=== PATIENT | female | born 1945 | race Caucasian/White ===

== ENCOUNTER → 2018-01-09 | Outpatient (CLI) | payer MEDICARE, OTHER | LOC: COL.RAD 01-03 13:34 | DX: K21.0 Gastro-esophageal reflux disease with esophagitis (principal); K22.70 Barrett's esophagus without dysplasia | CPT/HCPCS: A9541 ==

== ENCOUNTER 2018-11-19 16:26 | Emergency (ER) | payer MEDICARE ==
[~2018-11-19] VITALS: Ht 152.4 cm; Wt 90.9 kg
[2018-11-19 16:38] VITALS: TEMP 98.5
[2018-11-19 17:30] LABS: BILIRUBIN,TOTAL 0.5 mg/dL (0.0-1.0); CALCIUM 9.3 mg/dL (8.4-10.2); CREATININE, serum 1.47 (0.52-1.25); MAGNESIUM 1.9 mg/dL (1.6-2.3); TOTAL PROTEIN 6.6 gm/dL (6.4-8.2)
[2018-11-19 17:47] LABS: TROPONIN-I < 0.012 ng/mL (0.000-0.035)
[2018-11-19 19:58] VITALS: BP 104/54; PULSE 70
[2018-11-19 21:23] LABS: HEMATOCRIT 31.3 % (37.0-47.0); MEAN CELL VOLUME 84 fl (80.0-100.0); MEAN CORPUSCULAR HEMOGLOBIN 27 pg (27.0-31.0); RED BLOOD COUNT 3.71 M/mm3 (4.10-5.30)
[2018-11-19 21:24] LABS: MEAN CORPUSCULAR HGB CONC 32 g/dl (33.0-37.0); MEAN PLATELET VOLUME 10.3 fl (7.4-10.4); PLATELET COUNT 338 K/mm3 (130-400); REDCELL DISTRIBUTION WIDTH-CV 14.8 % (11.5-14.5)
[2018-11-19 21:25] LABS: BASOPHIL 2 % (0-2); EOSINOPHIL 3 % (0-4); NEUTROPHILS 52 % (42.0-75.2); PLATELET ESTIMATE NORMAL (NORMAL); POLYCHROMASIA 1+
[2018-11-19 21:26] LABS: ANISOCYTOSIS 1+; POIKILOCYTOSIS 1+
[2018-11-20] MEDS ORDERED: CYMBALTA 60MG60 MG PO (13:21)
[2018-11-20] MEDS ORDERED: CARDIZEM LA120 MG PO (13:24)
[2018-11-20] MEDS ORDERED: WELLBUTRIN XL150 MG PO (13:25)
[2018-11-20] MEDS ORDERED: NEURONTIN300 MG/CAP PO (13:28)
[2018-11-20] MEDS ORDERED: LIPITOR20 MG PO (13:29)
[2018-11-20] MEDS ORDERED: HCTZ 25MG TAB25 MG PO (13:29)
[2018-11-20] MEDS ORDERED: NORCO 325 MG-7.1 TAB PO (13:30)
[2018-11-20] MEDS ORDERED: ZESTRIL40 MG PO (13:30)
[2018-11-20] MEDS ORDERED: ASPIRIN 81M81 MG/TA2 PO (13:31)
[2018-11-20] MEDS ORDERED: PROAIR HFA0.09 MG/AC IH (13:31)
[2018-11-20] MEDS ORDERED: ELIQUIS 5MG PO (13:33)
[2018-11-20] MEDS ORDERED: SYNTHROID0.075 MG/T PO (13:34)
[2018-11-20] MEDS ORDERED: ATIVAN2 MG PO (13:34)
[2018-11-20] MEDS ORDERED: SYNTHROID0.05 MG/TA PO (13:38)
[2018-11-20] MEDS ORDERED: TOPROL XL 25MG25 MG PO (14:10)
[2018-11-20 14:47] LABS: LYMPHOCYTE 15 % (20.0-51.0)
== END 2018-11-19 19:58 | disposition home or self-care (01) ==
LOC: COL.ER 16:26
PROVIDERS: Emergency Medicine
DX: I48.92 Unspecified atrial flutter (principal); I48.91 Unspecified atrial fibrillation; I10 Essential (primary) hypertension; F41.9 Anxiety disorder, unspecified; F32.9 Major depressive disorder, single episode, unspecified; M79.7 Fibromyalgia; E03.9 Hypothyroidism, unspecified; Z90.710 Acquired absence of both cervix and uterus; Z87.891 Personal history of nicotine dependence
CPT/HCPCS: J7030

== ENCOUNTER 2018-11-20 12:15 | Day surgery (SDC) | payer MEDICARE ==
[2018-11-20] VITALS (7 sets, daily range): BP systolic 90–120; BP diastolic 40–78; PULSE 76–146; TEMP 98.7
[~2018-11-20] VITALS: Ht 152.5 cm; Wt 95.7 kg
[2018-11-20 13:04] LABS: INR 1.5 (0.8-3.0); POTASSIUM 4.4 mmol/L (3.4-5.0); PROTHROMBIN TIME 17.4 SECONDS (9.7-12.8)
[2018-11-20] MEDS ORDERED: CYMBALTA 60MG60 MG PO (13:21)
[2018-11-20] MEDS ORDERED: CARDIZEM LA120 MG PO (13:24)
[2018-11-20] MEDS ORDERED: WELLBUTRIN XL150 MG PO (13:25)
[2018-11-20] MEDS ORDERED: NEURONTIN300 MG/CAP PO (13:28)
[2018-11-20] MEDS ORDERED: LIPITOR20 MG PO (13:29)
[2018-11-20] MEDS ORDERED: HCTZ 25MG TAB25 MG PO (13:29)
[2018-11-20] MEDS ORDERED: NORCO 325 MG-7.1 TAB PO (13:30)
[2018-11-20] MEDS ORDERED: ZESTRIL40 MG PO (13:30)
[2018-11-20] MEDS ORDERED: PROAIR HFA0.09 MG/AC IH (13:31)
[2018-11-20] MEDS ORDERED: ASPIRIN 81M81 MG/TA2 PO (13:31)
[2018-11-20] MEDS ORDERED: ELIQUIS 5MG PO (13:33)
[2018-11-20] MEDS ORDERED: SYNTHROID0.075 MG/T PO (13:34)
[2018-11-20] MEDS ORDERED: ATIVAN2 MG PO (13:34)
[2018-11-20] MEDS ORDERED: SYNTHROID0.05 MG/TA PO (13:38)
[2018-11-20 13:39] LABS: THYROID STIMULATING HORMONE 0.715 uIU/mL (0.465-4.680)
[2018-11-20] MEDS ORDERED: TOPROL XL 25MG25 MG PO (14:10)
--- NOTE | 2018-11-20 16:00 | NUR ---
Discharge instructions given to pt.pt verbalizes understanding.INT removed,catheter tip intact.Pt escorted out via wheelchair by this nurse.
== END 2018-11-20 16:14 | disposition home or self-care (01) ==
LOC: COL.CAR 12:15
PROVIDERS: Internal Medicine Cardiovascular Disease
DX: I48.91 Unspecified atrial fibrillation (principal); I10 Essential (primary) hypertension; E78.5 Hyperlipidemia, unspecified; I73.9 Peripheral vascular disease, unspecified; J44.9 Chronic obstructive pulmonary disease, unspecified; E03.9 Hypothyroidism, unspecified; M19.90 Unspecified osteoarthritis, unspecified site; G89.29 Other chronic pain; M54.2 Cervicalgia; Z79.82 Long term (current) use of aspirin; Z79.01 Long term (current) use of anticoagulants; Z82.3 Family history of stroke; Z87.891 Personal history of nicotine dependence; Z88.0 Allergy status to penicillin
CPT/HCPCS: J2704; J7030

== ENCOUNTER 2023-09-16 14:22 | Emergency (ER) | payer MEDICARE ==
[~2023-09-16] VITALS: Ht 149.9 cm; Wt 57.7 kg
[~2023-09-16 14:22] MED LIST: AMBIEN 5MG TABLE5 MG PO; ASPIRIN 81M81 MG/TA2 PO; ATIVAN2 MG PO; CARDIZEM LA120 MG PO; CYMBALTA 60MG60 MG PO; DEXILANT60 MG PO; ELIQUIS 5MG PO; HCTZ 25MG TAB25 MG PO; LIPITOR20 MG PO; NEURONTIN300 MG/CAP PO; NORCO 325 MG-7.1 TAB PO; PROAIR HFA0.09 MG/AC IH; PROZAC 20MG20 MG PO; SUBOXONE 8 MG-21 FIL SL; SYNTHROID0.05 MG/TA PO; SYNTHROID0.075 MG/T PO; TOPROL XL 25MG25 MG PO; WELLBUTRIN XL150 MG PO; ZESTRIL40 MG PO
[2023-09-16 15:41] LABS: COLLECTION METHOD CLEAN CATCH
[2023-09-16 15:47] LABS: BASO % 0.5 % (0.0-2.0); EOS # 0.1 K/mm3 (0.0-0.7); EOS % 1.3 % (0.0-4.0); GRAN % 66.4 % (42.2-75.2); HEMATOCRIT 38.9 % (37.0-47.0); LYMPH # 1.6 K/mm3 (1.2-3.4); LYMPH % 26.6 % (20.0-51.0); MEAN CELL VOLUME 85 fl (80.0-100.0); MEAN CORPUSCULAR HEMOGLOBIN 28 pg (27-31); MEAN CORPUSCULAR HGB CONC 33 g/dl (33.0-37.0); MEAN PLATELET VOLUME 11.3 fl (7.4-10.4); MONO # 0.3 K/mm3 (0.1-0.6); MONO % 4.9 % (1.7-9.3); PLATELET COUNT 276 K/mm3 (130-400); RED BLOOD COUNT 4.57 M/mm3 (4.10-5.30); REDCELL DISTRIBUTION WIDTH-CV 14.3 % (11.5-14.5)
[2023-09-16] MEDS ORDERED: NORVASC 5MG5 MG/TAB PO (15:53)
[2023-09-16] MEDS ORDERED: PRIL40 PO (15:54)
[2023-09-16] MEDS ORDERED: ASPIRIN 81M81 MG/TA2 PO (15:55)
[2023-09-16 15:56] LABS: PH 5.5 (5.0-8.5); URINE APPEARANCE CLOUDY (CLEAR/HAZY); URINE BLOOD NEGATIVE (NEGATIVE); URINE COLOR Dark Yellow (YELLOW); URINE GLUCOSE NEGATIVE (NEGATIVE); URINE KETONE TRACE (NEGATIVE); URINE NITRATE NEGATIVE (NEGATIVE); URINE PROTEIN(semi-quant) 1+ (NEGATIVE)
[2023-09-16] MEDS ORDERED: diphenhydrAMINE 25 MG CAP PO ONE (16:00)
[2023-09-16 16:04] LABS: ALANINE AMINOTRANSFERASE 16 U/L (0-55); ALBUMIN 3.9 g/dL (3.4-4.8); ALKALINE PHOSPHATASE 67 U/L (40-150); ANION GAP 12 mmol/L (7-16); AST,SGOT 18 U/L (5-34); BILIRUBIN,TOTAL 0.7 mg/dL (0.2-1.2); BLOOD UREA NITROGEN 20 mg/dL (10-20); CALCIUM 9.9 mg/dL (8.4-10.2); CHLORIDE 107 mEq/L (98-107); CREATININE, serum 0.91 mg/dL (0.57-1.11); GLUCOSE 115 mg/dL (70-99); POTASSIUM 3.5 mEq/L (3.5-4.5); SODIUM 143 mEq/L (136-145); TOTAL PROTEIN 6.7 g/dl (6.2-8.1)
[2023-09-16 16:08] LABS: ALCOHOL(ethanol),MEDICAL < 10 mg/dL (0-10); SALICYLATE < 5.0 mg/dL (15.0-30.0)
[2023-09-16 16:17] LABS: TRICYCLIC ANTIDEPRESS URINE NEGATIVE (NEGATIVE)
[2023-09-16 16:24] LABS: URINE BACTERIA MANY /hpf (NONE SEEN)
[2023-09-16] MEDS ORDERED: Cephalexin 500 MG CAP PO ONE (17:00)
[2023-09-16] MEDS ORDERED: OLANZapine 5 MG Orally-Disinteg TAB PO ONE (19:30)
[2023-09-16] MEDS ORDERED: Cephalexin 500 MG CAP PO SCH (21:00)
[2023-09-17] MEDS ORDERED: Acetaminophen 325 MG TAB PO ONE (02:30)
[2023-09-17] MEDS ORDERED: Acetaminophen 325 MG TAB PO PRN (07:30)
[2023-09-17] MEDS ORDERED: amLODIPine 5 MG TAB PO SCH (09:00)
[2023-09-17] MEDS ORDERED: OLANZapine 10 MG Orally-Disinteg TAB PO ONE (09:30)
--- NOTE | 2023-09-17 15:50 | NUR ---
MISHA received a call from EMILY Bailey that pt would like to do a DPOA-HC with her son, Chadd. RN confirms pt as alert and oriented, just anxious. SW later met with pt and her son, Chadd to complete this. Pt was able to verbalize what the DPOA-HC was used for and how it was only for healthcare. Pt reports being anxious and not knowing if there is a right decision. MISHA and EMILY Bailey witnessed pt's signature and listing of Chadd. SW answered all questions. Copy in chart and original and copies provided.
[2023-09-17] MEDS ORDERED: OLANZapine 5 MG TAB PO ONE (23:00)
[2023-09-18] MEDS ORDERED: hydrOXYzine HCl 25 MG TAB PO ONE (00:45)
[2023-09-18] MEDS ORDERED: OLANZapine 10 MG Orally-Disinteg TAB PO ONE (07:30)
[2023-09-18 07:57] VITALS: BP 158/87; PULSE 85; TEMP 97.8
== END 2023-09-18 07:55 ==
LOC: COL.ER 14:22
PROVIDERS: Nurse Practitioner
DX: F41.9 Anxiety disorder, unspecified (principal); Z87.891 Personal history of nicotine dependence